=== PATIENT | male | born 1945 | race Caucasian/White ===

== ENCOUNTER 2019-03-21 11:50 | Inpatient (IN) | payer OTHER ==
[~2019-03-21] VITALS: Ht 180.3 cm; Wt 138.1 kg
[~2019-03-21 11:50] MED LIST: BUMETANIDE1 MG PO; FINASTERIDE5 MG PO; GABARONE300 MG PO; LIPITOR40 MG PO; METOPROLOL SR100 MG PO; NOVOLIN 701 UNIT/0.0 SC; POTASSIUM20 MEQ PO; TERAZOSIN HCL10 M1 PO; VITAMIN D NATU400 IU PO; WARFARIN2 MG PO
[2019-03-21 11:54] VITALS: BP 138/46
[2019-03-21 12:26] LABS: BASO % 0.4 % (0.0-1.0); EOS # 0.3 10*3/uL (0.0-0.4); EOS % 3.1 % (1.0-4.0); HEMATOCRIT 35.3 % (42.0-52.0); MEAN CELL VOLUME 89.4 fl (80.0-94.0); MEAN CORPUSCULAR HGB 27.8 pg (27.0-31.0); MEAN CORPUSCULAR HGB CONC 31.2 g/dl (33.0-37.0); MEAN PLATELET VOLUME 9.5 fl (9.6-12.3); MONO # 0.7 10*3/uL (0.1-1.0); MONO % 8.4 % (3.0-9.0); NEUT # 6.3 10*3/uL (2.3-7.9); NEUT % 75.9 % (47.0-73.0); PLATELET COUNT AUTOMATED 184 10*3/uL (130-400); RED BLOOD COUNT 3.95 10*6/uL (4.50-5.90); RED CELL DISTRI WIDTH 12.7 % (0-14.5); WHITE BLOOD COUNT 8.3 10*3/uL (4.8-10.8)
[2019-03-21 12:40] LABS: ACT PARTIAL THROMBO TIME 43.7 SECONDS (20.0-32.1); INTERNATIONAL NORM RATIO 3.2 (2.0-3.5)
[2019-03-21 12:43] LABS: ALBUMIN 3.4 gm/dl (3.1-4.5); ALKALINE PHOSPHATASE 114 U/L (45-117); BUN 39 mg/dl (7-24); CHLORIDE 108 mmol/L (98-107); CREATININE 2.11 mg/dL (0.70-1.30); LIPASE 142 U/L (73-393); SGOT/AST 19 IU/L (3-35); SGPT/ALT 17 U/L (12-78); SODIUM 139 mmol/L (136-145); TOTAL PROTEIN 7.1 gm/dL (6.4-8.2)
[2019-03-21 12:44] LABS: TROPONIN I < 0.015 ng/ml (<0.045)
[2019-03-21 13:28] LABS: BILIRUBIN NEGATIVE (NEGATIVE); CLARITY CLEAR (CLEAR); COLOR YELLOW (YELLOW); GLUCOSE NEGATIVE (NEGATIVE); KETONE NEGATIVE (NEGATIVE)
[2019-03-21 13:29] LABS: BLOOD TRACE-INTACT (NEGATIVE); LEUKO ESTERASE NEGATIVE (NEGATIVE); NITRITE NEGATIVE (NEGATIVE); UROBILINOGEN 0.2 E.U./dl (0.2-1.0)
[2019-03-21 13:30] LABS: EPITHELIAL CELLS 0-2; WBC 0-2 wbc/hpf (0-5)
[2019-03-21 14:45] VITALS: BP 149/55
[2019-03-21] MEDS ORDERED: TIKOSYN250 MCG PO (15:25)
[2019-03-21] MEDS ORDERED: BUPROPION HYDR150 M4 PO (15:28)
[2019-03-21] MEDS ORDERED: ROCALTROL0.25 MC2 PO (15:29)
[2019-03-21] MEDS ORDERED: COREG12.5 M1 PO (15:30)
[2019-03-21] MEDS ORDERED: VOLTAREN100 GM T (15:32)
[2019-03-21] MEDS ORDERED: DULOXETINE HCL60 MG PO (15:33)
[2019-03-21] MEDS ORDERED: KERODEX 71113 GM T (15:34)
[2019-03-21] MEDS ORDERED: NOVOLOG FL100 UNIT/2 SC (15:38)
[2019-03-21] MEDS ORDERED: LANTUS SOL100 UNIT/1 SC (15:40)
[2019-03-21] MEDS ORDERED: VICTOZA 3-PAK6 MG/ML SC (15:41)
[2019-03-21] MEDS ORDERED: MELATONIN3 M3 PO (15:42)
[2019-03-21] MEDS ORDERED: Mysoline50 MG PO (15:43)
[2019-03-21] MEDS ORDERED: TORSEMIDE20 MG PO (15:45)
[2019-03-21] MEDS ORDERED: DIOVAN40 MG PO (15:47)
[2019-03-21 16:00] VITALS: BP 148/65
[2019-03-21 20:00] VITALS: BP 134/60
[2019-03-22] VITALS: BP 154/72; BP 162/79
[2019-03-22 06:05] LABS: CREATININE 1.89 mg/dL (0.70-1.30); PHOSPHOROUS 3.5 mg/dL (2.5-4.9); POTASSIUM 4.2 mmol/L (3.5-5.1)
[2019-03-22 06:07] LABS: BASO % 0.4 % (0.0-1.0); EOS # 0.2 10*3/uL (0.0-0.4); EOS % 3.8 % (1.0-4.0); HEMATOCRIT 32.2 % (42.0-52.0); LYMPH # 1.2 10*3/uL (1.3-4.4); LYMPH % 23.7 % (27.0-41.0); MEAN CORPUSCULAR HGB 27.6 pg (27.0-31.0); MEAN CORPUSCULAR HGB CONC 31.1 g/dl (33.0-37.0); MEAN PLATELET VOLUME 9.9 fl (9.6-12.3); MONO # 0.6 10*3/uL (0.1-1.0); MONO % 11.7 % (3.0-9.0); NEUT # 3.1 10*3/uL (2.3-7.9); NEUT % 60.2 % (47.0-73.0); PLATELET COUNT AUTOMATED 179 10*3/uL (130-400); RED BLOOD COUNT 3.62 10*6/uL (4.50-5.90); RED CELL DISTRI WIDTH 12.7 % (0-14.5); WHITE BLOOD COUNT 5.2 10*3/uL (4.8-10.8)
[2019-03-22 06:13] LABS: THYROID STIM HORMONE (HS) 1.65 uIU/ml (0.358-4.75)
[2019-03-22 06:53] LABS: ACT PARTIAL THROMBO TIME 44.7 SECONDS (20.0-32.1); INTERNATIONAL NORM RATIO 3.9 (2.0-3.5)
[2019-03-22 08:00] VITALS: BP 145/62
[2019-03-22 12:00] VITALS: BP 132/48
== END 2019-03-22 13:19 | disposition home or self-care (01) | DRG 638 ==
LOC: ED 11:50 → EDHOLD 14:02 → 5E 14:07
PROVIDERS: Emergency Medicine; Student in an Organized Health Care Education/Training Program; ADMIT Internal Medicine
DX: E11.649 Type 2 diabetes mellitus with hypoglycemia without coma (principal); Z68.41 Body mass index [BMI] 40.0-44.9, adult; E44.1 Mild protein-calorie malnutrition; I50.32 Chronic diastolic (congestive) heart failure; N17.0 Acute kidney failure with tubular necrosis; E66.01 Morbid (severe) obesity due to excess calories; E87.8 Other disorders of electrolyte and fluid balance, not elsewhere classified; D64.9 Anemia, unspecified; E83.41 Hypermagnesemia; E78.5 Hyperlipidemia, unspecified; N40.0 Benign prostatic hyperplasia without lower urinary tract symptoms; E11.40 Type 2 diabetes mellitus with diabetic neuropathy, unspecified; I48.0 Paroxysmal atrial fibrillation; F32.9 Major depressive disorder, single episode, unspecified; J44.9 Chronic obstructive pulmonary disease, unspecified; R79.1 Abnormal coagulation profile; R00.1 Bradycardia, unspecified; E11.65 Type 2 diabetes mellitus with hyperglycemia; Z79.4 Long term (current) use of insulin; Z90.49 Acquired absence of other specified parts of digestive tract; Z87.891 Personal history of nicotine dependence; Z91.030 Bee allergy status; Z88.8 Allergy status to other drugs, medicaments and biological substances; Z91.09 Other allergy status, other than to drugs and biological substances; Z79.899 Other long term (current) drug therapy; Z79.01 Long term (current) use of anticoagulants

== ENCOUNTER → 2021-01-18 | Outpatient (CLI) | payer OTHER ==
[~2021-01-18] MED LIST changes: +BUPROPION HYDR150 M4 PO; +COREG12.5 M1 PO; +DIOVAN40 MG PO; +DULOXETINE HCL60 MG PO; +KERODEX 71113 GM T; +LANTUS SOL100 UNIT/1 SC; +MELATONIN3 M3 PO; +Mysoline50 MG PO; +NOVOLOG FL100 UNIT/2 SC; +ROCALTROL0.25 MC2 PO; +TIKOSYN250 MCG PO; +TORSEMIDE20 MG PO; +VICTOZA 3-PAK6 MG/ML SC; +VOLTAREN100 GM T
[2021-01-18 12:49] LABS: HEMATOCRIT 34.9 % (42.0-52.0)
[2021-01-18 12:59] LABS: INTERNATIONAL NORM RATIO 1.6 (2.0-3.5)
== END | disposition home or self-care (01) ==
LOC: LAB 12:16
PROVIDERS: ATTEND Internal Medicine
DX: Z79.01 Long term (current) use of anticoagulants (principal)